=== PATIENT | male | born 1990 | race African-American/Black ===

== ENCOUNTER 2020-06-11 08:21 | Emergency (ER) | payer SELFPAY ==
[~2020-06-11] VITALS: Ht 182.9 cm; Wt 130.0 kg
--- NOTE | 2020-06-11 08:30 | PHYS DOC ---
General Adult EDM: Chief Complaint: TESTICULAR PAIN OR INJURY HPI: HPI: Patient is a 30 year old male who present to ER for evaluation of right-sided testicular pain for the last 4 days. The pain is getting worse, denies any fever, no nausea vomiting, no penile discharge. Patient is sexually active. Patient said he has been doing a lot of heavy lifting at work. Review of Systems: Review of Systems: Constitutional: Denies fever or chills. [] Eyes: Denies change in visual acuity. [] HENT: Denies nasal congestion or sore throat. [] Respiratory: Denies cough or shortness of breath. [] Cardiovascular: Denies chest pain or edema. [] GI: Denies abdominal pain, nausea, vomiting, bloody stools or diarrhea. [] : Denies dysuria. Positive for right testicular pain. Musculoskeletal: Denies back pain or joint pain. [] Integument: Denies rash. [] Neurologic: Denies headache, focal weakness or sensory changes. [] Endocrine: Denies polyuria or polydipsia. [] Lymphatic: Denies swollen glands. [] Psychiatric: Denies depression or anxiety. [] Heart Score: Risk Factors: Risk Factors: DM, Current or recent (<one month) smoker, HTN, HLP, family history of CAD, obesity. Risk Scores: Score 0 - 3: 2.5% MACE over next 6 weeks - Discharge Home Score 4 - 6: 20.3% MACE over next 6 weeks - Admit for Clinical Observation Score 7 - 10: 72.7% MACE over next 6 weeks - Early Invasive Strategies Physical Exam: PE: Constitutional: Well developed, well nourished, no acute distress, non-toxic appearance. [] HENT: Normocephalic, atraumatic, bilateral external ears normal, oropharynx moist, no oral exudates, nose normal. [] Eyes: PERRLA, EOMI, conjunctiva normal, no discharge. [] Neck: Normal range of motion, no tenderness, supple, no stridor. [] Cardiovascular:Heart rate regular rhythm, no murmur [] Lungs & Thorax: Bilateral breath sounds clear to auscultation [] Abdomen: Bowel sounds normal, soft, no tenderness, no masses, no pulsatile masses. : UNCIRCUMCISED PENIS, RIGHT SIDE SCROTUM IS TENDER TO PALPATION WITH MILD SWELLING. NO PENILE DISCHARGE. NO RASH. Skin: Warm, dry, no erythema, no rash. [] Back: No tenderness, no CVA tenderness. [] Extremities: No tenderness, no cyanosis, no clubbing, ROM intact, no edema. [] Neurologic: Alert and oriented X 3, normal motor function, normal sensory function, no focal deficits noted. [] Psychologic: Affect normal, judgement normal, mood normal. [] Current Patient Data: Labs: Laboratory Tests Test 06/11/20 09:25 Urine Collection Type Unknown Urine Color Yellow Urine Clarity Clear Urine pH 6.0 Urine Specific [place] 1.025 Urine Protein Negative mg/dL Urine Glucose (UA) Negative mg/dL Urine Ketones (Stick) Negative mg/dL Urine Blood Negative Urine Nitrite Negative Urine Bilirubin Negative Urine Urobilinogen Dipstick 1.0 mg/dL Urine Leukocyte Esterase Negative Urine RBC 0 /HPF Urine WBC Occ /HPF Urine Squamous Epithelial Cells Few /LPF Urine Bacteria Few /HPF Urine Mucus Slight /LPF Current Medications Medications (Trade) Dose Ordered Sig/Kyle Route PRN Reason Start Time Stop Time Status Last Admin Dose Admin Ketorolac Tromethamine (Toradol Im) 60 mg 1X ONCE IM 06/11/20 08:45 06/11/20 08:46 DC Ceftriaxone Sodium (Rocephin Im) 500 mg 1X ONCE IM 06/11/20 10:45 06/11/20 10:46 06/11/20 10:22 Azithromycin (Zithromax) 1,000 mg 1X ONCE PO 06/11/20 10:45 06/11/20 10:46 06/11/20 10:19 EKG: EKG: [] Radiology/Procedures: Radiology/Procedures: [][facility] [address] [place], [place] [id number] IMAGING REPORT Signed PATIENT: WICHO ESPINO ACCOUNT: [id number] : 1990 LOCATION: ER AGE: 30 SEX: M EXAM STATUS: REG ER ORD. PHYSICIAN: DAT FELDER DO REASON: right side testicular pain for 4 days PROCEDURE: TESTICULAR/SCROTUM EXAMINATION: US TESTICULAR, 06/11/2020 9:19 AM CLINICAL INDICATION: Right-sided testicular pain for 4 days TECHNIQUE: Grayscale, color and spectral Doppler ultrasound images of the scrotum and testicles. COMPARISON: None. FINDINGS: The right testicle measures 4.0 x 2.7 x 2.6 cm. The left testicle measures 4.0 x 3.0 x 2.6 cm. The testicles are homogeneous with normal blood flow. No testicular mass. The right epididymal head is enlarged with mild hyperemia compared to the left. There are a few anechoic epididymal head cysts bilaterally. Small right varicoceles and small right hydrocele noted. IMPRESSION: 1. Right epididymitis. 2. Small right varicoceles and small right hydrocele. Electronically signed by: Cristina Yusuf MD (06/11/2020 9:58 AM) [id number] DICTATED and SIGNED BY: CRISTINA YUSUF MD DATE: 06/11/20 [id number] 0 Course & Med Decision Making: Course & Med Decision Making Pertinent Labs and Imaging studies reviewed. (See chart for details) [] Dragon Disclaimer: Dragon Disclaimer: This electronic medical record was generated, in whole or in part, using a voice recognition dictation system. Departure Departure Impression: Primary Impression: Epididymitis, right Additional Impression: Hydrocele in adult Disposition: 01 DC HOME SELF CARE/HOMELESS Condition: STABLE Patient Instructions: Epididymitis Additional Instructions: Thank you for visiting our Emergency Department. We appreciate you trusting us with your care. If any additional problems come up don't hesitate to return to visit us. Please follow up with your primary care provider so they can plan additional care if needed and know about the problem that you had. If symptoms worsen come back to the Emergency Department. Any concerning symptoms that start such as chest pain, shortness of air, weakness or numbness on one side of the body, running high fevers or any other concerning symptoms return to the ER. PLEASE CALL [facility] UROLOGY DEPARTMENT FOR FOLLOW UP THIS WEEK. The phone number is [phone] Scripts Naproxen Sodium (ANAPROX DS) 550 Mg Tablet 1 TAB PO BID PRN for PAIN for 15 Days, #30 TAB 0 Refills Prov: DAT FELDER DO 06/11/20 Doxycycline Hyclate (DOXYCYCLINE HYCLATE) 100 Mg Tablet 1 TAB PO BID for 10 Days, #20 TAB Prov: DAT FELDER DO 06/11/20 DAT FELDER DO Jun 11, 2020 08:30
[2020-06-11] MEDS ORDERED: KETOROLAC 60 MG/2 ML VIAL. IM ONE (08:45)
[2020-06-11 09:26] VITALS: BP 149/92
[2020-06-11 09:32] LABS: BILIRUBIN,URINE NEGATIVE (NEG); CLARITY,URINE CLEAR; COLOR,URINE YELLOW; NITRITE,URINE NEGATIVE (NEG); PROTEIN,URINE NEGATIVE (NEG-TRACE)
[2020-06-11 09:54] LABS: BACTERIA,URINE FEW /HPF (0-FEW); RBC,URINE 0 /HPF (0-2); WBC,URINE OCC /HPF (0-4)
--- NOTE | 2020-06-11 10:01 | RAD ---
EXAMINATION: US TESTICULAR, 06/11/2020 9:19 AM CLINICAL INDICATION: Right-sided testicular pain for 4 days TECHNIQUE: Grayscale, color and spectral Doppler ultrasound images of the scrotum and testicles. COMPARISON: None. FINDINGS: The right testicle measures 4.0 x 2.7 x 2.6 cm. The left testicle measures 4.0 x 3.0 x 2.6 cm. The te sticles are homogeneous with normal blood flow. No testicular mass. The right epididymal head is enla rged with mild hyperemia compared to the left. There are a few anechoic epididymal head cysts bilater ally. Small right varicoceles and small right hydrocele noted. IMPRESSION: 1. Right epididymitis. 2. Small right varicoceles and small right hydrocele. Electronically signed by: Cristina Yusuf MD (06/11/2020 9:58 AM) [id number]
[2020-06-11] MEDS ORDERED: DOXY100T PO (10:09)
[2020-06-11] MEDS ORDERED: NAPR-682 PO (10:09)
[2020-06-11] MEDS ORDERED: cefTRIAXone IM 500 MG VIAL. IM ONE (10:45)
[2020-06-11] MEDS ORDERED: AZITHROMYCIN 250 MG TABLET. PO ONE (10:45)
== END 2020-06-11 10:45 | disposition home or self-care (01) ==
LOC: ER 08:21
DX: N45.1 Epididymitis (principal); N43.3 Hydrocele, unspecified
CPT/HCPCS: 76870; 81001; 96372; 99284; J0696

== ENCOUNTER 2020-06-19 18:41 | Emergency (ER) | payer SELFPAY ==
[~2020-06-19] VITALS: Ht 182.9 cm; Wt 130.0 kg
[~2020-06-19 18:41] MED LIST: DOXY100T PO; NAPR-682 PO
[2020-06-19 18:49] VITALS: BP 149/92
--- NOTE | 2020-06-19 19:05 | PHYS DOC ---
Past Medical History Past Medical History: No Pertinent History Past Surgical History: No Surgical History Smoking Status: Former Smoker Alcohol Use: None Adult General Chief Complaint Chief Complaint: TESTICULAR PAIN OR INJURY HPI HPI Patient is a 30 year old male who denies any significant past medical history presents emergency department complaining of recurrent right-sided testicular pain. Patient states that approximately 1 week ago he woke up in the morning complaining of stabbing pain radiating from the right testicle into the right groin. Patient was seen and evaluated in the emergency department ultrasound was done and the patient was discharged home with a diagnosis of epididymitis and started on a course of antibiotics. Patient states that he completed the course 2 days ago but is still been having intermittent right stabbing testicular pain. Patient states pain is typically positional but will sometimes intermittently come and go without any significant or noted aggravating or alleviating factors patient is denying any fever, chills, dysuria or pyuria. Denies any nausea vomiting or diarrhea as well. Review of Systems Review of Systems Constitutional: Denies fever or chills [] Eyes: Denies change in visual acuity, redness, or eye pain [] HENT: Denies nasal congestion or sore throat [] Respiratory: Denies cough or shortness of breath [] Cardiovascular: No additional information not addressed in HPI [] GI: Denies abdominal pain, nausea, vomiting, bloody stools or diarrhea [] : Denies dysuria or hematuria [] Musculoskeletal: Denies back pain or joint pain [] Integument: Denies rash or skin lesions [] Neurologic: Denies headache, focal weakness or sensory changes [] Endocrine: Denies polyuria or polydipsia [] All other systems were reviewed and found to be within normal limits, except as documented in this note. Current Medications Current Medications Current Medications Medications (Trade) Dose Ordered Sig/[facility] Start Time Stop Time Status Last Admin Dose Admin Azithromycin (Zithromax) 1,000 mg 1X ONCE 06/19/20 20:30 06/19/20 20:31 Allergies Allergies Allergies Coded Allergies Type Severity Reaction Last Updated Verified No Known Drug Allergies 06/11/20 No Physical Exam Physical Exam Constitutional: Well developed, well nourished, no acute distress, non-toxic appearance. [] HENT: Normocephalic, atraumatic, bilateral external ears normal, oropharynx moist, no oral exudates, nose normal. [] Eyes: PERRLA, EOMI, conjunctiva normal, no discharge. [] Neck: Normal range of motion, no tenderness, supple, no stridor. [] Cardiovascular:Heart rate regular rhythm, no murmur [] Lungs & Thorax: Bilateral breath sounds clear to auscultation [] Abdomen: Bowel sounds normal, soft, no tenderness, no masses, no pulsatile masses. [] Skin: Warm, dry, no erythema, no rash. [] Back: No tenderness, no CVA tenderness. [] Extremities: No tenderness, no cyanosis, no clubbing, ROM intact, no edema. [] Neurologic: Alert and oriented X 3, normal motor function, normal sensory function, no focal deficits noted. [] Psychologic: Affect normal, judgement normal, mood normal. [] Current Patient Data Vital Signs Vital Signs Date Time Temp Pulse Resp B/P (MAP) Pulse Ox O2 Delivery O2 Flow Rate FiO2 06/19/20 18:49 97.3 102 16 149/92 (111) 97 Room Air 97.3 EKG EKG [] Radiology/Procedures Radiology/Procedures [] Course & Med Decision Making Course & Med Decision Making Pertinent Labs and Imaging studies reviewed. (See chart for details) 30 male with recurrent right testicular pain which is raise concern for intermittent torsion, epididymitis, varicocele or hydrocele. At this time will obtain repeat ultrasound. Repeat ultrasound demonstrates right-sided hydrocele as well as ongoing epididymitis. At this time we knocked a clear reason why patient is having ongoing epididymitis. We will add azithromycin and ceftriaxone to regimen with a dose here and patient is going to follow-up with a urologist. Dragon Disclaimer Dragon Disclaimer This electronic medical record was generated, in whole or in part, using a voice recognition dictation system. Departure Departure Impression: Primary Impression: Epididymitis Disposition: 01 DC HOME SELF CARE/HOMELESS Condition: GOOD Referrals: ARTI ASHLEY MD Patient Instructions: Epididymitis Additional Instructions: EMERGENCY DEPARTMENT GENERAL DISCHARGE INSTRUCTIONS Thank you for coming to [facility] Emergency Department (ED) today and trusting us with you care. We trust that you had a positive experience in our Emergency Department. If you wish to speak to the department management, you may call the Director at [phone]. YOUR FOLLOW UP INSTRUCTIONS ARE FOLLOWS: 1. Do you have a private Doctor? If you do not have a private doctor, please ask for a resource list of physicians or clinics that may be able to assist you with follow up care. 2. The Emergency Physicain has interpreted your x-rays. The X-Ray specialist will also review them. If there is a change in the findings, you will be notified in 48 hours when at all possible. 3. A lab test or culture has been done, your results will be reviewed and you will be notified if you need a change in treatment. ADDITIONAL INSTRUCTIONS AND INFORMATION: 1. Your care today has been supervised by a physician who is specially trained in emergency care. Many problems require more than one evaluation for a complete diagnosis and treatment. We recommend that you schedule your follow up appointment as recommended to ensure complete treatment of you illness or injury. If you are unable to obtain follow up care and continue to have a problem, or if your condition worsens, we recommend that you return to the ED. 2. We are not able to safely determine your condition over the phone nor are we able to give sound medical advice over the phone. For these safety reasons, if you call for medical advice we will ask you to come to the ED for further evaluation. 3. If you have any questions regarding these discharge instructions please call the ED at [phone]. SAFETY INFORMATION: In the interest of safety, wellness, and injury prevention; we encourage you to wear your sealbelt, if you smoke; quite smoking, and we encourage family to use a protective helmet for bicycling and other sporting events that present an increased risk for head injury. IF YOUR SYMPTOMS WORSEN OR NEW SYMPTOMS DEVELOP, OR YOU HAVE CONCERNS ABOUT YOUR CONDITION; OR IF YOUR CONDITION WORSENS WHILE YOU ARE WAITING FOR YOUR FOLLOW UP APPOINTMENT; EITHER CONTACT YOUR PRIMARY CARE DOCTOR, THE PHYSICIAN WHOSE NAME AND NUMBER YOU WERE GIVEN, OR RETURN TO THE ED IMMEDIATELY. Scripts Doxycycline Hyclate (DOXYCYCLINE HYCLATE) 100 Mg Capsule 1 CAP PO BID for 10 Days, #20 CAP Prov: CONCHITA HILL MD 06/19/20 CONCHITA HILL MD Jun 19, 2020 19:05
--- NOTE | 2020-06-19 19:51 | RAD ---
Testicular ultrasound History: Reason: R testicular pain / . Comparison: Testicular ultrasound, 06/11/2020. Technique: Multiple grayscale, color flow Doppler and Doppler spectral analysis images of the scrotum are obtained. Findings: Right testicle measures 3.8 x 2.8 x 2.5 cm. Right testicle demonstrates normal parenchymal echogenic ity. The right epididymis remains enlarged and heterogeneous. Hypervascularity has improved from jim or study. Left testicle measures 3.5 x 2.6 x 2.6 cm. Left testicle demonstrates normal parenchymal echogenici ty. The left epididymis is unremarkable. There is no left hydrocele or varicocele. Small right hydrocele. No right varicocele is demonstrated. Scrotal hyperemia or swelling are not seen. Doppler imaging demonstrates normal flow to both testicles, without evidence of torsion. IMPRESSION: 1. The right epididymis remains enlarged and heterogeneous. Hypervascularity is improved from prior study. Cannot exclude mild persistent epididymitis. 2. Small right hydrocele. Electronically signed by: Jona Lange MD (06/19/2020 7:49 PM) [facility]
[2020-06-19] MEDS ORDERED: AZITHROMYCIN 250 MG TABLET. PO ONE (20:30)
[2020-06-19] MEDS ORDERED: DOXY100C2 PO (20:32)
== END 2020-06-19 21:17 | disposition home or self-care (01) ==
LOC: ER 18:41
DX: N45.1 Epididymitis (principal); Z87.891 Personal history of nicotine dependence
CPT/HCPCS: 76870; 99284-25